=== PATIENT | female | born 1965 | race Caucasian/White ===

== ENCOUNTER 2017-05-18 11:15 | Emergency (ER) | payer OTHER ==
[~2017-05-18] VITALS: Ht 175.3 cm; Wt 122.5 kg
[~2017-05-18 11:15] MED LIST: ALBU90OI6 INH; AMOX500 PO; CEPH500 PO; CLON2; CRUTCH4 USE; CYCL10 PO; FLUSAL5005; FLUSAL5005 IH; GUAPHELA PO; HYDACE5 PO; IBUP800 PO; LEVSOD137 PO; LEVSOD50 PO; LEVSOD75; NAPR500 PO; NEOPOLHCSU OT; OXYACE5T PO; PRED10 PO; RANI150; RANI150 PO; RXCYCL10 PO; RXNEOPOLHC AU; RXTRAM50 PO; SERT100; SERT100 PO; SOLI5 PO; TIOT18; TIOT18 IH; TRAM50 PO; TRAZ50
[2017-05-18] MEDS ORDERED: GLIP10 PO (11:35)
[2017-05-18] MEDS ORDERED: BUPRENORPHINE HC8 MG SL (11:35)
[2017-05-18] MEDS ORDERED: CYCL10 PO (11:35)
[2017-05-18] MEDS ORDERED: RISP1 PO (11:35)
[2017-05-18] MEDS ORDERED: CELE200 PO (11:35)
[2017-05-18] MEDS ORDERED: NEOPOLHCSU LEFTEAR (12:06)
== END 2017-05-18 12:12 | disposition home or self-care (01) ==
LOC: ER 11:15
DX: H60.92 Unspecified otitis externa, left ear (principal); Z88.2 Allergy status to sulfonamides; Z88.8 Allergy status to other drugs, medicaments and biological substances; Z79.899 Other long term (current) drug therapy; J44.9 Chronic obstructive pulmonary disease, unspecified; E03.9 Hypothyroidism, unspecified; E78.5 Hyperlipidemia, unspecified; F31.9 Bipolar disorder, unspecified; F17.200 Nicotine dependence, unspecified, uncomplicated
CPT/HCPCS: 99282

== ENCOUNTER 2019-02-12 13:34 | Day surgery (SDC) | payer OTHER ==
[~2019-02-12] VITALS: Ht 175.3 cm; Wt 129.4 kg
[~2019-02-12 13:34] MED LIST changes: +ALBU3IS INH; +ALBU90OI INH; +BUPRENORPHINE HC8 MG SL; +CELE200 PO; +Crestor20 MG PO; +EUTHYROX75 MCG PO; +FLUT1DIS8 INH; +GLIP10 PO; +HYDCHL25 PO; +NEOPOLHCSU LEFTEAR; +RISP1 PO; +RISP2 PO; +Ranitidine HCl300 M1 PO; +UNITHROID PO; +VITAMIN D350000 UNIT PO
[2019-02-12] MEDS ORDERED: INVOKANA100 MG (14:19)
--- NOTE | 2019-02-12 14:27 | NUR ---
02/12/19 1427 PATRICE PAEZ 5 BAD IVS DUE TO INFLITRATING AND SCARED VIENS FROM EX IV DRUG USE, ONE GOOD IV FLOWING WELL IN THE FOREARM BY TEE.
== END 2019-02-12 15:25 | disposition home or self-care (01) ==
LOC: ORSCSDS 13:34
PROVIDERS: Internal Medicine Gastroenterology
PROC: 0DBK8ZX Excision of Ascending Colon, Via Natural or Artificial Opening Endoscopic, Diagnostic (ICD-10-PCS; principal; 2019-02-12 15:00)
PROC: 0DBN8ZX Excision of Sigmoid Colon, Via Natural or Artificial Opening Endoscopic, Diagnostic (ICD-10-PCS; principal; 2019-02-12 15:00)
PROC: 0DBM8ZX Excision of Descending Colon, Via Natural or Artificial Opening Endoscopic, Diagnostic (ICD-10-PCS; principal; 2019-02-12 15:00)
DX: Z12.11 Encounter for screening for malignant neoplasm of colon (principal); D12.2 Benign neoplasm of ascending colon; D12.4 Benign neoplasm of descending colon; K63.5 Polyp of colon; Z80.0 Family history of malignant neoplasm of digestive organs; E03.9 Hypothyroidism, unspecified; F31.9 Bipolar disorder, unspecified; E78.5 Hyperlipidemia, unspecified; J44.9 Chronic obstructive pulmonary disease, unspecified; K21.9 Gastro-esophageal reflux disease without esophagitis; B19.20 Unspecified viral hepatitis C without hepatic coma; E11.9 Type 2 diabetes mellitus without complications; E66.9 Obesity, unspecified; Z68.41 Body mass index [BMI] 40.0-44.9, adult; Z79.899 Other long term (current) drug therapy; F17.210 Nicotine dependence, cigarettes, uncomplicated
CPT/HCPCS: 82947; 88305; J2704

== ENCOUNTER → 2020-11-24 | Outpatient (CLI) | payer OTHER ==
[~2020-11-24] MED LIST changes: +INVOKANA100 MG
== END | disposition home or self-care (01) ==
LOC: LAB SHORT 15:50 → LAB 15:50
DX: L60.2 Onychogryphosis (principal); B35.1 Tinea unguium
CPT/HCPCS: 87210

== ENCOUNTER → 2023-03-04 | Outpatient (CLI) | payer OTHER ==
[2023-03-04 15:50] LABS: BASOPHILS ABSOLUTE AUTO 0.03 K/mm3 (0.00-0.23); BASOPHILS PERCENT AUTO 0 % (0-2); EOSINOPHILS ABSOLUTE AUTO 0.08 K/mm3 (0.00-0.68); EOSINOPHILS PERCENT AUTO 1 % (0-6); Hematocrit 43.4 % (33.0-51.0); IMMATURE GRAN ABSOLUTE AUTO 0.02 K/mm3 (0.00-0.10); IMMATURE GRAN PERCENT AUTO 0 % (0-1); LYMPHOCYTES ABSOLUTE AUTO 1.93 K/mm3 (0.84-5.20); LYMPHOCYTES PERCENT AUTO 22 % (21-46); MONOCYTES PERCENT AUTO 7 % (4-13); Mean Corpuscular HGB 27.6 pg (26.0-34.0); Mean Corpuscular HGB Conc 32.3 g/dL (31.5-36.5); Mean Corpuscular Volume 86 fL (80-100); Mean Platelet Volume 8.6 fL (9.1-12.4); NEUTROPHILS ABSOLUTE AUTO 5.98 K/mm3 (1.96-9.15); NEUTROPHILS PERCENT AUTO 69 % (41-73); Platelet Count 247 K/mm3 (150-400); RDW Coefficient Variation 15.5 % (11.7-14.2); RDW Standard Deviation 47.7 fL (35.1-46.3); Red Blood Cell Count 5.07 M/mm3 (3.80-5.20); White Blood Cell Count 8.64 K/mm3 (4.00-11.30)
[2023-03-04 16:07] LABS: Bun/Creatinine Ratio 21.2 (12.0-20.0); Calcium, Blood 9.5 mg/dL (8.5-10.1); Creatinine, Blood 1.13 mg/dL (0.40-1.00); Potassium, Blood 3.7 mmol/L (3.5-5.5); Thyroid Stimulating Hormone 0.061 uIU/mL (0.360-4.800)
== END ==
LOC: LAB SHORT 15:45
PROVIDERS: Physician Assistant Surgical
DX: R53.83 Other fatigue (principal)
CPT/HCPCS: 80048; 83880; 84443; 85025

== ENCOUNTER 2023-06-24 11:59 | Emergency (ER) | payer OTHER ==
[~2023-06-24] VITALS: Ht 170.2 cm; Wt 170.1 kg
--- NOTE | 2023-07-03 12:27 | NUR ---
LATE ENTRY: DOCUMENTATON CORRECTION FOR INFORMATION ENTERED ON WRONG PATIENT.
== END 2023-06-24 14:15 ==
LOC: ER 11:59
DX: R56.9 Unspecified convulsions (principal)
CPT/HCPCS: 99285-25

== ENCOUNTER → 2024-05-07 | Outpatient (CLI) | payer OTHER | LOC: LAB SHORT 16:21 → LAB 16:21 | DX: R30.0 Dysuria (principal) | CPT/HCPCS: 87077; 87086; 87186 ==